=== PATIENT | male | born 1955 | race Caucasian/White ===

== ENCOUNTER 2017-09-07 06:49 | Inpatient (IN) | payer OTHER ==
[~2017-09-07] VITALS: Ht 185.4 cm; Wt 104.0 kg
[~2017-09-07 06:49] MED LIST: ASPI-496 PO; LISI1TAB5 PO; MULT1TAB13 PO
[2017-09-07] MEDS ORDERED: VANCOMYCIN PER PHARMACY MC STA (07:01)
[2017-09-07] MEDS ORDERED: LACTATED RINGERS 1,000 ML IV SCH (07:08)
[2017-09-07] MEDS ORDERED: ACETAMINOPHEN 500 MG TABLET PO ONE (07:30)
[2017-09-07] MEDS ORDERED: VANCOMYCIN 2,000 MG in SODIUM CHLORIDE 0.9% 500 ML IV ONE (07:30)
[2017-09-07] MEDS ORDERED: GABAPENTIN 300 MG CAPSULE PO ONE (07:30)
[2017-09-07] MEDS ORDERED: FENTANYL PF 250 MCG/5ML ONE (07:58)
[2017-09-07] MEDS ORDERED: TRANEXAMIC ACID 100 MG/ML, 10ML ONE ×2 (08:22)
[2017-09-07] MEDS ORDERED: SODIUM CHLORIDE 0.9% 100 ML ONE (08:22)
[2017-09-07] MEDS ORDERED: EPINEPHRINE 1 MG/ML, 1ML ONE (08:22)
[2017-09-07] MEDS ORDERED: VANCOMYCIN 1,000 MG ONE (08:22)
[2017-09-07] MEDS ORDERED: KETOROLAC 60 MG/2 ML ONE (08:22)
[2017-09-07] MEDS ORDERED: ROPIvacaine/PF 0.5%, 30 ML ONE (08:22)
[2017-09-07] MEDS ORDERED: HYDROcodone/APAP 5/325 TABLET PO PRN (08:30)
[2017-09-07] MEDS ORDERED: DIPHENHYDRAMINE 25 MG CAPSULE PO PRN (08:30)
[2017-09-07] MEDS ORDERED: ZOLPIDEM 5MG TABLET PO PRN (08:30)
[2017-09-07] MEDS ORDERED: ONDANSETRON 2MG/ML, 2ML IV PRN (08:30)
[2017-09-07] MEDS ORDERED: BISACODYL 10 MG SUPP PR PRN (08:30)
[2017-09-07] MEDS ORDERED: ACETAMINOPHEN 650 MG/20.3 ML UDC PO PRN (08:30)
[2017-09-07] MEDS ORDERED: HYDROmorphone 2 MG/ML, 1ML IV PRN ×2 (08:30→09:00)
[2017-09-07] MEDS ORDERED: ONDANSETRON 4 MG TABLET PO PRN (08:30)
[2017-09-07] MEDS ORDERED: MAGNESIUM HYDROXIDE 8%, 30ML UDC PO PRN (08:30)
[2017-09-07] MEDS ORDERED: SENNA/DOCUSATE TABLET PO PRN (08:30)
[2017-09-07] MEDS ORDERED: ONDANSETRON 2MG/ML, 2ML ONE (08:37)
[2017-09-07] MEDS ORDERED: DEXAMETHASONE 4 MG/ML, 1ML ONE (08:37)
[2017-09-07] MEDS ORDERED: LIDOCAINE-MPF 2% ,5ML ONE (08:37)
[2017-09-07] MEDS ORDERED: LABETALOL 5MG/ML, 20ML ONE (08:37)
[2017-09-07] MEDS ORDERED: CEFAZOLIN 1,000 MG ONE (08:37)
[2017-09-07] MEDS ORDERED: PROPOFOL 10 MG/ML, 20ML ONE (08:37)
[2017-09-07] MEDS ORDERED: LORazepam 2 MG/ML, 1ML IVPush PRN (09:00)
[2017-09-07] MEDS ORDERED: PROMETHAZINE 25 MG/ML, 1ML IV PRN (09:00)
[2017-09-07] MEDS ORDERED: MEPERIDINE/PF 25MG/0.5ML IVPush PRN (09:00)
[2017-09-07] MEDS ORDERED: ALBUTEROL SULFATE 2.5 MG/3 ML NPPB PRN (09:00)
[2017-09-07] MEDS ORDERED: hydrALAzine 20 MG/ML, 1ML IV PRN (09:00)
[2017-09-07] MEDS ORDERED: MORPHINE SULFATE 4 MG/ML, 1ML IV PRN (09:00)
[2017-09-07] MEDS ORDERED: LABETALOL 5MG/ML, 20ML IV PRN (09:00)
[2017-09-07] MEDS: GEMFIBROZIL 600 MG TABLET PO SCH ×2 (09:00→20:14)
[2017-09-07] MEDS ORDERED: FENTANYL PF 100 MCG/2ML IV PRN (09:00)
[2017-09-07] MEDS ORDERED: OXYcodone 5 MG/5 ML ORAL.SOL UDC PO PRN (09:00)
[2017-09-07] MEDS ORDERED: PROMETHAZINE 12.5 MG SUPP PR PRN (09:00)
[2017-09-07] MEDS: DOCUSATE 100 MG CAPSULE PO SCH ×2 (09:00→20:14)
[2017-09-07] MEDS ORDERED: MEPERIDINE/PF 25MG/0.5ML ONE (10:18)
[2017-09-07] MEDS ORDERED: OXYcodone 5 MG/5 ML ORAL.SOL UDC ONE (10:46)
[2017-09-07] MEDS: NS + 20MEQ KCL 1,000 ML IV SCH (13:27)
[2017-09-07] MEDS ORDERED: SCOPOLAMINE PATCH, 1.5MG PATCH.TD72 TD ONE (14:00)
[2017-09-07 14:05] VITALS: BP 116/72
[2017-09-07] MEDS: CEFAZOLIN PMX 2GM/50ML 50 ML IVPB SCH (17:00)
[2017-09-07] MEDS: ASPIRIN 81 MG TABLET EC PO SCH (17:55)
[2017-09-07 18:27] VITALS: BP 128/68
[2017-09-07] MEDS: OXYcodone IR 5MG TABLET PO PRN (20:15)
[2017-09-08] MEDS: CEFAZOLIN PMX 2GM/50ML 50 ML IVPB SCH (00:53)
[2017-09-08] MEDS: OXYcodone IR 5MG TABLET PO PRN ×3 (01:05→09:40)
[2017-09-08 01:22] VITALS: BP 138/71
[2017-09-08] MEDS: NS + 20MEQ KCL 1,000 ML IV SCH (01:30)
[2017-09-08] MEDS: ASPIRIN 81 MG TABLET EC PO SCH (05:19)
[2017-09-08] MEDS ORDERED: DEXAMETHASONE 4 MG/ML, 1ML IVPush SCH (06:00)
[2017-09-08 07:44] VITALS: BP 146/92
[2017-09-08] MEDS ORDERED: HYDROCHLOROTHIAZIDE 12.5 MG CAPSULE PO SCH (09:00)
[2017-09-08] MEDS ORDERED: LISINOPRIL 20 MG TABLET PO SCH (09:00)
[2017-09-08] MEDS: GEMFIBROZIL 600 MG TABLET PO SCH (09:40)
[2017-09-08] MEDS: DOCUSATE 100 MG CAPSULE PO SCH (09:41)
[2017-09-08] MEDS ORDERED: GEMF600T3 PO (09:58)
[2017-09-08 12:44] VITALS: BP 156/93
== END 2017-09-08 12:50 | disposition home or self-care (01) | DRG 470 ==
LOC: OUT 06:49 → ORIP 08:11 → 4NOR 11:33
PROVIDERS: ADMIT Orthopaedic Surgery; ATTEND Orthopaedic Surgery
PROC: 0SRD069 Replacement of Left Knee Joint with Oxidized Zirconium on Polyethylene Synthetic Substitute, Cemented, Open Approach (ICD-10-PCS; principal; 2017-09-07 08:45)
DX: M17.0 Bilateral primary osteoarthritis of knee (principal)
CPT/HCPCS: 36415; 85014; 85018; C1713; J0171; J0690; J1100; J1885; J2175; J2405; J2704; J2795; J3010; J3370; J3480; J3490; C1776; J7040